=== PATIENT | male | born 1975 | race Caucasian/White ===

== ENCOUNTER 2020-01-24 19:46 | Emergency (ER) | payer MEDICAID ==
[~2020-01-24] VITALS: Ht 180.3 cm; Wt 89.1 kg
[2020-01-24 20:02] VITALS: BP 146/85; Ht 180.3 cm; Wt 89.1 kg
[2020-01-24] MEDS ORDERED: ELIQUIS5 MG PO (20:04)
[2020-01-24] MEDS ORDERED: LIPITOR80 MG (20:04)
[2020-01-24] MEDS ORDERED: BUPROPION HCL150 M1 PO (20:05)
[2020-01-24] MEDS ORDERED: CARDURA1 MG PO (20:05)
[2020-01-24] MEDS ORDERED: CATAPRES0.1 MG PO (20:05)
[2020-01-24] MEDS ORDERED: NEURONTIN 300300 MG PO (20:06)
[2020-01-24] MEDS ORDERED: HYDROCODON-ACE1 EA10 PO (20:06)
[2020-01-24] MEDS ORDERED: ISOSORBIDE MONO30 M1 PO (20:07)
[2020-01-24] MEDS ORDERED: VISTARIL25 MG PO (20:07)
[2020-01-24] MEDS ORDERED: VYVANSE30 MG PO (20:08)
[2020-01-24] MEDS ORDERED: LISINOPRIL20 MG PO (20:08)
[2020-01-24] MEDS ORDERED: MUPIROCIN15 GM TOPICAL (20:08)
[2020-01-24 20:40] LABS: HEMATOCRIT 42.1 % (42.0-54.0); HEMOGLOBIN 13.9 g/dL (13.5-17.5); LYMPHOCYTES 10.1 % (15-50); MCH 30.8 pg (26.0-34.0); MCV 93.1 fL (80.0-100.0); MEAN PLATELET VOLUME 9.1 fL (7.4-10.4); NEUTROPHILS 83.7 % (40-80); PLATELET COUNT 317 10x3/uL (130-400); RBC 4.52 10x6/uL (4.20-6.10); RDW 12.6 % (11.5-14.5); WBC 9.3 10x3/uL (4.8-10.8)
[2020-01-24 20:44] LABS: APTT 31.4 SECONDS (22.8-39.4); INR 1.01 (0.85-1.17); PROTIME 13.2 SECONDS (11.6-15.0)
[2020-01-24 20:45] LABS: CALC OSMOLALITY 279 mosm/kg (275-300); CALCIUM 8.7 mg/dL (8.5-10.1); CARBON DIOXIDE 35.1 mmol/L (21.0-32.0); CHLORIDE - SERUM 102 mmol/L (98-107); CREATININE - SERUM 1.2 mg/dL (0.6-1.3); GLUCOSE 127 mg/dL (74-106); SODIUM 138 mmol/L (136-145); UREA NITROGEN 17 mg/dL (7-18); eGFR NON AFRICAN AMERICAN 69 mL/min (90-120)
[2020-01-24 20:49] LABS: BILIRUBIN NEGATIVE (NEGATIVE); GLUCOSE NEGATIVE (NEGATIVE); KETONE NEGATIVE (NEGATIVE); NITRITE NEGATIVE (NEGATIVE); SPECIFIC GRAVITY 1.015 (1.005-1.020); UROBILINOGEN NORMAL (NORMAL)
[2020-01-24 21:01] LABS: ALBUMIN 3.6 g/dL (3.4-5.0); ALKALINE PHOSPHATASE 85 U/L (30-120); ALT (SGPT) 21 U/L (10-68); BILIRUBIN - TOTAL 0.37 mg/dL (0.2-1.3); CKMB 1.4 U/L (0.0-3.6); CREATINE KINASE 49 UL (21-232); LIPASE 69 U/L (73-393); MAGNESIUM - SERUM 2.1 mg/dL (1.8-2.4); PROTEIN - SERUM 6.6 g/dL (6.4-8.2)
[2020-01-24 21:03] LABS: TROPONIN-I < 0.017 ng/mL (0.000-0.060)
[2020-01-24] MEDS ORDERED: OMEPRAZOLE40 MG PO (21:11)
== END 2020-01-24 21:46 | disposition home or self-care (01) ==
LOC: D.ER 19:46
PROVIDERS: Family Medicine
DX: R10.13 Epigastric pain (principal); R07.9 Chest pain, unspecified; R06.02 Shortness of breath; I11.0 Hypertensive heart disease with heart failure; I50.9 Heart failure, unspecified; Z72.0 Tobacco use